=== PATIENT | female | born 2000 | race Caucasian/White ===

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

== ENCOUNTER 2020-10-14 17:50 | Emergency (ER) | payer BC, SELFPAY ==
[2020-10-14 17:51] VITALS: BP 133/76; PULSE 67; RESP 16; TEMP 37; O2SAT 100; BMI 32.0
--- NOTE | 2020-10-14 18:07 | HMH.EDGENADL ---
ED Disposition Clinical Impression: Vaginal bleeding Disposition: Home, Self-Care Condition on Discharge: Good Additional Instructions: Turn for worsening bleeding, difficulty breathing weakness or dizziness within the next 8 hours. Referrals: Therese Jimenez PA [Primary Care Provider] - - Critical Care Critical Care Time: No Attestation: On 10/14/20, the high probability of a clinically significant, sudden or life threatening deterioration of the following system(s) required my full and direct attention, intervention and personal management. The time I documented below is in addition to time spent performing reported procedures but includes the following listed in this critical care notation. Medical Decision Making - Medical Records Medical records reviewed: Yes: I reviewed the patient's medical records. - Rajat Inquiry Pt receiving controlled substance: No Vital Signs: 10/14/20 17:51 Temperature 98.6 F Temperature Source Oral Pulse Rate [Right] 67 Respiratory Rate 16 Blood Pressure [Right Arm] 133/76 Blood Pressure Mean [Right Arm] 95 Blood Pressure Source [Right Arm] Automatic Cuff Blood Pressure Position [Right Arm] Sitting 02 Sat by Pulse Oximetry 100 Oxygen Delivery Method Room Air - Lab Data Lab Results 10/14/20 18:00: Urine HCG, Qual Negative Medical Decision Narrative: 20-year-old female presents with vaginal spotting. She is in no acute distress nontoxic-appearing comfortable sitting in the bed with normal vital signs and no symptoms concerning for anemia. She does not have an active bleeding at this time. Regnancy test was checked. Comfortable in the room she understands the need to follow-up with primary care physician and psychiatric nurse practitioner. She will continue control for now. And return if there is profuse bleeding General Adult HPI - General Chief complaint: Vaginal Bleeding Stated complaint: possible Miscarrige Time Seen by Provider: 10/14/20 18:00 Mode of Arrival: Ambulatory Limitations: No Limitations Description of Symptoms (Recalled from ER Triage Doc. by RN): pt advises she has been bleeding for the past 3 weeks. She doesn't know if she has had a miscarriage or not. Unknown if she was or not - History of Present Illness HPI narrative: 20-year-old female presents with vaginal bleeding. She says that she had her last period at the beginning of the month last month and she began spotting and she is concerned that she may be having a miscarriage. She has had spotting for 1 week. She denies chest pain shortness of air difficulty breathing or generalized weakness. No previous history of miscarriage. No vaginal discharge fever chills dysuria or abdominal pain. Severity: mild Consistency: intermittent - Related Data Home Medications Medication Instructions Recorded Confirmed norgestimate-ethinyl estradioL 1 tab PO DAILY 10/14/20 10/14/20 [[id number] Tablet] Allergies Allergy/AdvReac Type Severity Reaction Status Date / Time No Known Allergies Allergy Verified 09/28/20 14:16 [facility] History - Hepatitis A Screen Drug use history?: No High risk sexual behaviors?: No History of sexually transmitted infection?: No Currently employed?: No Childcare worker?: No Do you have indoor plumbing?: Yes Do you have electricity?: Yes Attestation statement:: This patient has been screened for Hepatitis A risk factors. Medical History: Reports:: Anxiety, Depression Other Surgeries: No: Amputation: No Fractures: No Comment: both eyes- crossed - Social History Smoking Status: Never smoker Alcohol Intake: never Substance Use Type: denies use Occupational Status: unemployed, employed - Psychiatric History Pschychiatric History:: Reports:: Anxiety, Depression Family Hx:: Cancer, Diabetes, Asthma, Hypertension ROS Obtained: Yes All systems reviewed & no additional complaints - Constitutional Constitutional: Denies chill
[2020-10-14 18:10] LABS: Urine Pregnancy, HCG Qual. Negative (Negative)
[2020-10-14 19:10] VITALS: BP 129/74; PULSE 64; RESP 16; TEMP 37; O2SAT 100
== END 2020-10-14 19:11 | disposition home or self-care (01) ==
PROVIDERS: Emergency Provider Emergency Medicine; PCP Physician Assistant
DX: N93.9 Abnormal uterine and vaginal bleeding, unspecified (principal); F41.8 Other specified anxiety disorders
CPT/HCPCS: 81025; 99282

== ENCOUNTER 2020-11-28 08:09 | Emergency (ER) | payer BC, SELFPAY ==
[2020-11-28 08:10] VITALS: BP 112/63; PULSE 81; RESP 18; TEMP 36.8; O2SAT 98; BMI 32.0
--- NOTE | 2020-11-28 08:46 | HMH.EDGENADL ---
ED Disposition Clinical Impression: Upper respiratory infection Qualifiers: URI type: unspecified URI Qualified Code(s): J06.9 - Acute upper respiratory infection, unspecified Disposition: Home, Self-Care Condition on Discharge: Good Instructions: DI for Viral Upper Respiratory Infection -- Adult Additional Instructions: Quarantine yourself until you obtain your COVID-19 test result. You will be called with the result. Tylenol for sore throat or any fever. Follow-up with primary care doctor if not improved in 4 to 5 days. Referrals: Therese Jimenez PA [Primary Care Provider] - - Critical Care Critical Care Time: No Attestation: On 11/28/20, the high probability of a clinically significant, sudden or life threatening deterioration of the following system(s) required my full and direct attention, intervention and personal management. The time I documented below is in addition to time spent performing reported procedures but includes the following listed in this critical care notation. Medical Decision Making - Rajat Inquiry Pt receiving controlled substance: No Vital Signs: 11/28/20 08:10 Temperature 98.2 F Temperature Source Oral Pulse Rate [Right] 81 Respiratory Rate 18 Blood Pressure [Right Arm] 112/63 Blood Pressure Mean [Right Arm] 79 02 Sat by Pulse Oximetry 98 Oxygen Delivery Method Room Air - Lab Data Lab Results 11/28/20 08:21: Group A Strep Rapid Negative Orders (Tests/Meds): ORDERS Category Date Time Status Full Resp Panel w/COVID ([facility]) Routine Lab 11/28/20 09:14 Ordered Strep Screen Confirmation Stat Micro 11/28/20 08:21 Received General Adult HPI - General Chief complaint: Upper Respiratory Infection Stated complaint: sore throat, congestion Time Seen by Provider: 11/28/20 08:46 Mode of Arrival: Family Vehicle Limitations: No Limitations Description of Symptoms (Recalled from ER Triage Doc. by RN): PATIENT C/O SORE THROAT FOR THE LAST TWO DAYS. DENIES FEVER, NAUSEA, VOMITTING AND COUGH. PT DENIES ANY OTHER SYMPTOMS. - History of Present Illness HPI narrative: 2-day history of sore throat and nasal congestion. No fever. No cough. No known exposures to strep or COVID-19. She has not been vaccinated against COVID-19. She has a 1-year-old child who is being seen here at the same time who has cough and congestion for 3 days with no fever. - Related Data Home Medications Medication Instructions Recorded Confirmed norgestimate-ethinyl estradioL 1 tab PO DAILY 10/14/20 10/14/20 [[id number] Tablet] Allergies Allergy/AdvReac Type Severity Reaction Status Date / Time No Known Allergies Allergy Verified 09/28/20 14:16 [facility] History - Hepatitis A Screen Drug use history?: No High risk sexual behaviors?: No History of sexually transmitted infection?: No Currently employed?: No Childcare worker?: No Do you have indoor plumbing?: Yes Do you have electricity?: Yes Attestation statement:: This patient has been screened for Hepatitis A risk factors. I have reviewed the patient's past medical history: Yes Medical History: Reports:: Anxiety, Depression Other Surgeries: No: Amputation: No Fractures: No Comment: both eyes- crossed - Social History Smoking Status: Never smoker Alcohol Intake: never Substance Use Type: denies use Occupational Status: unemployed, employed - Psychiatric History Pschychiatric History:: Reports:: Anxiety, Depression Family Hx:: Cancer, Diabetes, Asthma, Hypertension ROS Obtained: Yes Systems reviewed as appropriate & no additional complaints - Constitutional Constitutional: Denies fever(s) - ENT Ears, Nose, Mouth, and Throat: Reports nasal congestion, Reports sore throat - Respiratory Respiratory: Denies cough - Gastrointestinal Gastrointestingal: Denies: diarrhea, vomiting Physical Exam - General General appearance: alert, in no apparent distress - ENT ENT exam: Present
[2020-11-28 08:51] LABS: Strep Scrn Group A (Rapid) Negative (Negative)
[2020-11-28 09:10] VITALS: BP 131/71; PULSE 82; RESP 18; TEMP 36.8; O2SAT 99
[2020-11-28 09:26] LABS: Adenovirus,PCR Not Detected (NotDetected); Bordetella Pertussis Not Detected (NotDetected); Chlamydophila Pneumoniae, PCR Not Detected (NotDetected); Coronavirus 19, PCR Not Detected (NotDetected); Coronavirus 229E Not Detected (NotDetected); Coronavirus NL63 Not Detected (NotDetected); Coronovirus HKU1,PCR Not Detected (NotDetected); Human Metapneumovirus Not Detected (NotDetected); Influenza A, PCR Not Detected (NotDetected); Influenza AH1, 2009 Not Detected (NotDetected); Influenza AH1, PCR Not Detected (NotDetected); Influenza AH3,PCR Not Detected (NotDetected); Influenza B, PCR Not Detected (NotDetected); Mycoplasma Pneumoniae, PCR Not Detected (NotDetected); Parainfluenza 1, PCR Not Detected (NotDetected); Parainfluenza 2, PCR Not Detected (NotDetected); Parainfluenza 3, PCR Not Detected (NotDetected); Parainfluenza 4, PCR Not Detected (NotDetected); Respiratory Syncytial Virus Not Detected (NotDetected); Rhinovirus/Enterovirus Not Detected (NotDetected)
[2020-11-28 10:45] LABS: Coronavirus OC43 Detected (NotDetected)
== END 2020-11-28 09:24 | disposition home or self-care (01) ==
PROVIDERS: Emergency Provider Emergency Medicine; PCP Physician Assistant
DX: J06.9 Acute upper respiratory infection, unspecified (principal); B34.8 Other viral infections of unspecified site; F41.8 Other specified anxiety disorders
CPT/HCPCS: 87430; 87581; 87633; 87798; 99282

== ENCOUNTER 2020-12-06 13:48 | Emergency (ER) | payer BC, SELFPAY ==
[2020-12-06 14:00] VITALS: BP 125/73; PULSE 86; RESP 21; TEMP 37; O2SAT 99; BMI 26.6
--- NOTE | 2020-12-06 14:52 | HMH.EDUTC ---
[facility] [place] Clinical Impression: Encounter for laboratory testing for COVID-19 virus Disposition: Home, Self-Care Condition on Discharge: Good Instructions: DI for COVID-19 (Suspected or Confirmed ), Coronavirus Disease 2019, Preventing the Spread of Coronavirus Discharge Instructions Additional Instructions: You were tested for today for COVID19 your test result should be back in the next 24-48 hours, you may call to the [facility] to see if your test results are back in the next 48 hours [phone] [facility] hours are 9am-9pm You was given a handout with instructions for Self Quarantine and Self isolation for while you wait on test results and what to do if they are positive If you are positive the Health Dept will be contacting you also Referrals: Therese Jimenez PA [Primary Care Provider] - As needed Time of Disposition: 14:55 Medical Decision Making - Rajat Inquiry Pt receiving controlled substance: No Rajat was queried for this patient: No Vital Signs: 12/06/20 14:00 Temperature 98.6 F Temperature Source Oral Pulse Rate [Right Brachial] 86 Respiratory Rate 21 Blood Pressure [Right Arm] 125/73 Blood Pressure Mean [Right Arm] 90 Blood Pressure Source [Right Arm] Automatic Cuff Blood Pressure Position [Right Arm] Sitting 02 Sat by Pulse Oximetry 99 Oxygen Delivery Method Room Air Orders (Tests/Meds): ORDERS Category Date Time Status Covid-19 Nasal PCR ([facility]) Routine Lab 12/06/20 14:10 Received Medical Decision Narrative: Viewed patient previous test and seen patient was negative for COVID 19 but did test positive for Coronavirus OC43 patient educated on difference between the two viruses [facility] [place] - General Stated complaint: Covid test Time Seen by Provider: 12/06/20 14:53 Mode of Arrival: Ambulatory Source of Information: Patient Limitations: No Limitations Description of Symptoms (Recalled from Triage Doc. by RN): PATIENT TESTED POSITIVE FOR COVID A WEEK AGO. WANTS RE-TESTED. DENIES ANY SYMPTOMS HEENT Symptoms (Recalled from RN notes): No Resp Symptoms (Recalled from RN notes): No Skin Symptoms (Recalled from RN notes): No MS Symptoms (Recalled from RN notes): No Functional Status (Recalled from RN notes): WNL - History of Present Illness Provider Complaint: Patient states that she was tested last week and she tested positive for COVID States that she wanted to get tested again to see if she is still positive States that she is feeling better now - Related Data Home Medications Medication Instructions Recorded Confirmed norgestimate-ethinyl estradioL 1 tab PO DAILY 10/14/20 10/14/20 [[id number] Tablet] Allergies Allergy/AdvReac Type Severity Reaction Status Date / Time No Known Allergies Allergy Verified 09/28/20 14:16 - Worker's Comp Is this a Worker's Comp case?: No [facility] History - Hepatitis A Screen Drug use history?: No High risk sexual behaviors?: No History of sexually transmitted infection?: No Currently employed?: No Childcare worker?: No Do you have indoor plumbing?: Yes Do you have electricity?: Yes Attestation statement:: This patient has been screened for Hepatitis A risk factors. I have reviewed the patient's past medical history: Yes Medical History: Reports:: Anxiety, Depression Other Surgeries: No: Amputation: No Fractures: No Comment: both eyes- crossed - Social History Smoking Status: Never smoker Alcohol Intake: never Substance Use Type: denies use Occupational Status: other - Psychiatric History Pschychiatric History:: Reports:: Anxiety, Depression Family Hx:: Cancer, Diabetes, Asthma, Hypertension ROS Obtained: Yes All systems reviewed & no additional complaints, Yes Systems reviewed as appropriate & no additional complaints - Constitutional Constitutional: Reports system reviewed and no additional complaints, except as docu, Denies body ache, Denies chills, Denies fever(s) - ENT Ears, Nose, Mouth, and
[2020-12-06 14:58] VITALS: BP 125/73; PULSE 86; RESP 21; TEMP 37; O2SAT 99
== END 2020-12-06 15:06 | disposition home or self-care (01) ==
PROVIDERS: Emergency Provider Nurse Practitioner; PCP Physician Assistant
DX: Z20.822 Contact with and (suspected) exposure to COVID-19 (principal); F41.8 Other specified anxiety disorders
CPT/HCPCS: 99202; G0463; U0003